=== PATIENT | male | born 1990 | race Caucasian/White ===

== ENCOUNTER 2024-12-04 14:29 | Inpatient (IN) | payer OTHER ==
[2024-12-04] MEDS ORDERED: BISMUTH SUBSALICYLATE 524 MG/30 ML PO PRN (15:18)
[2024-12-04] MEDS ORDERED: hydrOXYzine PAMOATE 25 MG CAPSULE (FP) PO PRN (15:18)
[2024-12-04] MEDS ORDERED: guaiFENesin 600 MG TABLET.ER (FP) PO PRN (15:18)
[2024-12-04] MEDS ORDERED: POLYETHYLENE GLYCOL (HEALTHYLAX) 3350 17 GM PACKET PO PRN (15:18)
[2024-12-04] MEDS ORDERED: LOPERAMIDE HCL 2 MG CAPSULE PO PRN (15:18)
[2024-12-04] MEDS ORDERED: BENZOCAINE/MENTHOL (CHLORASEPTIC ) LOZENGE MM PRN (15:18)
[2024-12-04] MEDS ORDERED: MAG HYDROX/AL HYDROX/SIMETH 30 ML UNIT-DOSE CUP PO PRN (15:18)
[2024-12-04] MEDS ORDERED: NALOXONE (NARCAN) HCL 4 MG/0.1 ML SPRAY NS PRN (15:18)
[2024-12-04] MEDS ORDERED: MAGNESIUM HYDROX 2400MG/30ML ORAL SUSPENSION 30 ML CUP PO PRN (15:18)
[2024-12-04] MEDS ORDERED: IBUPROFEN 400 MG TABLET (FP) PO PRN (15:18)
[2024-12-04] MEDS ORDERED: IBUPROFEN 600 MG TABLET (FP) PO PRN (15:18)
[2024-12-04] MEDS ORDERED: LORazepam 1 MG TABLET PO PRN (15:20)
[2024-12-04 15:26] VITALS: BMI 21.5
[2024-12-04] MEDS ORDERED: methaDONE HCL 10 MG TABLET PO PRN (17:19)
[2024-12-04] MEDS: methaDONE HCL 10 MG TABLET PO ONE ×2 (17:30→17:55)
[2024-12-04] MEDS: PRENATAL VITAMINS W/ FOLIC ACID TABLET (FP) PO SCH (17:55)
[2024-12-04] MEDS: LORazepam 2 MG TABLET PO SCH (17:55)
[2024-12-04] MEDS ORDERED: PRENATAL VITAMINS W/ FOLIC ACID TABLET (FP) PO ONE (17:57)
[2024-12-04] MEDS ORDERED: LORazepam 2 MG TABLET ONE (17:57)
[2024-12-04] MEDS ORDERED: methaDONE HCL 10 MG TABLET (FOR DETOX USE ONLY) ONE (17:57)
[2024-12-04] MEDS: cloNIDine HCL 0.1 MG TABLET PO SCH (18:32)
[2024-12-04] MEDS: BENZONATATE 200 MG CAPSULE PO PRN (18:49)
[2024-12-04] MEDS: MELATONIN 5 MG TABLETS PO SCH (23:07)
[2024-12-04] MEDS: THIAMINE 100 MG TABLET PO SCH (23:08)
[2024-12-05] MEDS: ACETAMINOPHEN 325 MG TABLET (FP) PO PRN (05:36)
[2024-12-05] MEDS: methaDONE 40 MG, methaDONE 10 MG PO ONE (10:49)
[2024-12-06] MEDS ORDERED: cloNIDine HCL 0.1 MG TABLET PO PRN
[2024-12-06] MEDS: LORazepam 1 MG TABLET PO SCH (05:58)
[2024-12-06] MEDS: methaDONE 40 MG, methaDONE 20 MG PO ONE (10:36)
[2024-12-06] MEDS: OSELTAMIVIR PHOSPHATE 75 MG CAPSULE PO SCH (10:54)
[2024-12-07] MEDS ORDERED: LORazepam 0.5 MG TABLET PO PRN
[2024-12-07] MEDS: LORazepam 0.5 MG TABLET PO SCH (06:00)
[2024-12-07] MEDS: methaDONE 40 MG, methaDONE 30 MG PO ONE (10:53)
[2024-12-07] MEDS: METHOCARBAMOL 500 MG TABLET PO PRN (10:53)
[2024-12-08] MEDS: LORazepam 0.5 MG TABLET PO ONE (06:00)
[2024-12-08] MEDS: methaDONE HCL 40 MG DISPERSABLE TABLET PO ONE (09:54)
[2024-12-08] MEDS: ONDANSETRON *ODT* 4 MG TABLET SL PRN (20:29)
[2024-12-09 00:47] LABS: POTASSIUM 4.7 mmol/L (3.5-5.1)
[2024-12-09 00:51] LABS: ALBUMIN 3.5 g/dl (3.4-5.0); BASO % 0.4 % (0-2.0); BLOOD UREA NITROGEN 12.4 mg/dL (7-18); CALCIUM 9.5 mg/dL (8.5-10.1); EOS % 1.6 % (0-4.5); HEMATOCRIT 44.2 % (35.4-49); HEMOGLOBIN 14.8 GM/dL (11.7-16.9); LYMPH % 26.6 % (8-40); MCH 27.5 pg (25.7-33.7); MCHC 33.5 g/dl (32.0-35.9); MEAN CELL VOLUME 82.1 fl (80-96); MEAN PLT VOLUME 9.5 fl (7.5-11.1); MONO % 7.1 % (3.8-10.2); NEUT % 64.3 % (42.8-82.8); PLATELET COUNT 266 10^3/uL (134-434); RBC 5.38 M/mm3 (4.00-5.60); RDW 14.6 % (11.9-15.9); WHITE BLOOD COUNT 6.6 K/mm3 (4.0-10.0)
[2024-12-09 00:53] LABS: CREATININE 0.7 mg/dL (0.55-1.3)
[2024-12-09 00:55] LABS: BILIRUBIN,TOTAL 0.4 mg/dL (0.2-1); TOT PROT 7.2 g/dl (6.4-8.2)
[2024-12-09] MEDS: methaDONE 80 MG, methaDONE 10 MG PO ONE (09:11)
[2024-12-09] MEDS: NALOXONE (NYS OPIOID OVERDOSE PROGRAM) 4 MG/0.1 ML SPRAY NS SCH (09:13)
[2024-12-10 09:09] VITALS: BP 98/77; PULSE 79; RESP 17; TEMP 98.9
[2024-12-10] MEDS: DICYCLOMINE HCL 10 MG CAPSULE PO PRN (09:09)
== END 2024-12-10 11:15 | disposition home or self-care (01) | DRG 773 ==
LOC: YASAS 14:29 → Y6N 17:56
PROVIDERS: ADMIT Allergy & Immunology; ATTEND Family Medicine Addiction Medicine
PROC: HZ2ZZZZ Detoxification Services for Substance Abuse Treatment (ICD-10-PCS; principal; 2024-12-04)
DX: F11.23 Opioid dependence with withdrawal (principal); F13.20 Sedative, hypnotic or anxiolytic dependence, uncomplicated; F10.20 Alcohol dependence, uncomplicated; F17.210 Nicotine dependence, cigarettes, uncomplicated; F41.9 Anxiety disorder, unspecified; J10.1 Influenza due to other identified influenza virus with other respiratory manifestations
CPT/HCPCS: 0241U-QW; 36415; 80053; 80305; 80307; 82962; 85025; 93005; 93010; Q0162

== ENCOUNTER 2025-02-16 11:33 | Inpatient (IN) | payer OTHER ==
[2025-02-16 11:55] VITALS: BMI 22.4
[2025-02-16] MEDS ORDERED: ONDANSETRON *ODT* 4 MG TABLET SL PRN (12:07)
[2025-02-16] MEDS ORDERED: IBUPROFEN 600 MG TABLET (FP) PO PRN (12:07)
[2025-02-16] MEDS ORDERED: BISMUTH SUBSALICYLATE 262 MG/15 ML BTL PO PRN (12:07)
[2025-02-16] MEDS ORDERED: MAG HYDROX/AL HYDROX/SIMETH 30 ML UNIT-DOSE CUP PO PRN (12:07)
[2025-02-16] MEDS ORDERED: LOPERAMIDE HCL 2 MG CAPSULE PO PRN (12:07)
[2025-02-16] MEDS ORDERED: BENZOCAINE/MENTHOL (CHLORASEPTIC ) LOZENGE MM PRN (12:07)
[2025-02-16] MEDS ORDERED: DICYCLOMINE HCL 10 MG CAPSULE PO PRN (12:07)
[2025-02-16] MEDS ORDERED: MAGNESIUM HYDROX 2400MG/30ML ORAL SUSPENSION 30 ML CUP PO PRN (12:07)
[2025-02-16] MEDS ORDERED: IBUPROFEN 400 MG TABLET (FP) PO PRN (12:07)
[2025-02-16] MEDS ORDERED: NALOXONE (NARCAN) HCL 4 MG/0.1 ML SPRAY NS PRN (12:07)
[2025-02-16] MEDS ORDERED: BENZONATATE 200 MG CAPSULE PO PRN (12:07)
[2025-02-16] MEDS ORDERED: guaiFENesin 600 MG TABLET.ER (FP) PO PRN (12:07)
[2025-02-16] MEDS ORDERED: POLYETHYLENE GLYCOL (HEALTHYLAX) 3350 17 GM PACKET PO PRN (12:07)
[2025-02-16] MEDS ORDERED: ACETAMINOPHEN 325 MG TABLET (FP) PO PRN (12:07)
[2025-02-16] MEDS ORDERED: diazePAM 5 MG TABLET ONE (13:46)
[2025-02-16] MEDS: diazePAM 5 MG TABLET PO SCH ×2 (13:48→17:31)
[2025-02-16] MEDS: MELATONIN 5 MG TABLETS PO SCH (22:24)
[2025-02-16] MEDS: THIAMINE 100 MG TABLET PO SCH (22:24)
[2025-02-17] MEDS: methaDONE 40 MG, methaDONE 30 MG PO SCH (05:50)
[2025-02-17] MEDS ORDERED: methaDONE HCL 10 MG TABLET PO SCH (06:00)
[2025-02-17 09:48] LABS: HEMATOCRIT 41.9 % (40.1-51.0); HEMOGLOBIN 13.3 g/dL (13.7-17.5); MCHC 31.7 g/dl (32.3-36.5); MEAN CELL VOLUME 84.6 fl (79.0-92.2); MEAN PLT VOLUME 10.5 fl (9.4-12.4); PLATELET COUNT # 386 x10^3/uL (163-337); RDW 15.5 % (12.0-15.6)
[2025-02-17 09:51] LABS: POTASSIUM 4.5 mmol/L (3.5-5.1)
[2025-02-17 10:06] LABS: CALCIUM 9.2 mg/dL (8.5-10.1)
[2025-02-17 10:08] LABS: ALBUMIN 3.8 g/dl (3.4-5.0); BLOOD UREA NITROGEN 14.3 mg/dL (7-18)
[2025-02-17 10:10] LABS: CREATININE 0.8 mg/dL (0.55-1.3)
[2025-02-17 10:11] LABS: BILIRUBIN,TOTAL 0.5 mg/dL (0.2-1); TOT PROT 7.3 g/dl (6.4-8.2)
[2025-02-17] MEDS: TOPIRAMATE 25 MG TABLET PO SCH (10:26)
[2025-02-17] MEDS: PRENATAL VITAMINS W/ FOLIC ACID TABLET (FP) PO SCH (10:26)
[2025-02-17] MEDS: METHOCARBAMOL 500 MG TABLET PO PRN (22:23)
[2025-02-18] MEDS: diazePAM 5 MG TABLET PO SCH (05:49)
[2025-02-18] MEDS: diazePAM 5 MG TABLET PO PRN (10:04)
[2025-02-19] MEDS: diazePAM 5 MG TABLET PO SCH (05:41)
[2025-02-19] MEDS: hydrOXYzine PAMOATE 25 MG CAPSULE (FP) PO PRN (22:35)
[2025-02-20] MEDS: diazePAM 5 MG TABLET PO ONE (05:17)
[2025-02-20 08:55] VITALS: BP 109/67; PULSE 101; RESP 17; TEMP 99.1
== END 2025-02-20 12:08 | disposition other institution (70) | DRG 773 ==
LOC: YASAS 11:33 → Y3N 12:29
PROVIDERS: ADMIT Allergy & Immunology; ATTEND Allergy & Immunology
PROC: HZ2ZZZZ Detoxification Services for Substance Abuse Treatment (ICD-10-PCS; principal; 2025-02-16)
DX: F13.232 Sedative, hypnotic or anxiolytic dependence with withdrawal with perceptual disturbance (principal); F11.20 Opioid dependence, uncomplicated; F14.20 Cocaine dependence, uncomplicated; F25.9 Schizoaffective disorder, unspecified; F41.9 Anxiety disorder, unspecified; Z86.19 Personal history of other infectious and parasitic diseases
CPT/HCPCS: 36415; 80053; 80305; 80307; 85027; 86780; 87811; 93005; 93010

== ENCOUNTER 2025-02-20 12:17 | Inpatient (IN) | payer OTHER ==
[2025-02-20] MEDS ORDERED: NALOXONE (NARCAN) HCL 4 MG/0.1 ML SPRAY NS PRN (13:34)
[2025-02-20] MEDS ORDERED: MAG HYDROX/AL HYDROX/SIMETH 30 ML UNIT-DOSE CUP PO PRN (13:34)
[2025-02-20] MEDS ORDERED: LOPERAMIDE HCL 2 MG CAPSULE PO PRN (13:34)
[2025-02-20] MEDS ORDERED: ACETAMINOPHEN 325 MG TABLET (FP) PO PRN (13:34)
[2025-02-20] MEDS ORDERED: IBUPROFEN 400 MG TABLET (FP) PO PRN (13:34)
[2025-02-20] MEDS ORDERED: NICOTINE 14 MG/24 HOURS TOPICAL PATCH TD PRN (13:34)
[2025-02-20] MEDS ORDERED: METHOCARBAMOL 500 MG TABLET PO PRN (13:34)
[2025-02-20] MEDS ORDERED: NALOXONE HCL 0.4 MG/ML VIAL IVPUSH PRN (13:34)
[2025-02-20] MEDS ORDERED: guaiFENesin 600 MG TABLET.ER (FP) PO PRN (13:34)
[2025-02-20] MEDS ORDERED: NICOTINE POLACRILEX 4 MG LOZENGE BC PRN (13:34)
[2025-02-20] MEDS ORDERED: MAGNESIUM HYDROX 2400MG/30ML ORAL SUSPENSION 30 ML CUP PO PRN (13:34)
[2025-02-20] MEDS ORDERED: BENZONATATE 200 MG CAPSULE PO PRN (13:34)
[2025-02-20] MEDS ORDERED: NICOTINE POLACRILEX 4 MG GUM BUC PRN (13:34)
[2025-02-20] MEDS ORDERED: POLYETHYLENE GLYCOL (HEALTHYLAX) 3350 17 GM PACKET PO PRN (13:34)
[2025-02-20] MEDS: MELATONIN 5 MG TABLETS PO SCH (21:30)
[2025-02-20] MEDS: THIAMINE 100 MG TABLET PO SCH (21:30)
[2025-02-20] MEDS ORDERED: PATIENT'S OWN MEDICATION (NON-FORMULARY) (Olanzapine [Zyprexa] 10 MG Tablet) PO SCH (22:00)
[2025-02-20] MEDS: BENZOCAINE/MENTHOL (CHLORASEPTIC ) LOZENGE MM PRN (22:09)
[2025-02-21] MEDS: methaDONE 40 MG, methaDONE 30 MG PO SCH (05:54)
[2025-02-21] MEDS ORDERED: methaDONE HCL 10 MG TABLET PO SCH (06:00)
[2025-02-21] MEDS ORDERED: FLUoxetine HCL 20 MG CAPSULE PO SCH (10:00)
[2025-02-21] MEDS: PRENATAL VITAMINS W/ FOLIC ACID TABLET (FP) PO SCH (10:17)
[2025-02-22] MEDS: hydrOXYzine PAMOATE 25 MG CAPSULE (FP) PO PRN (09:53)
[2025-02-22] MEDS: IBUPROFEN 600 MG TABLET (FP) PO PRN (14:05)
[2025-02-23] MEDS ORDERED: guaiFENesin 600 MG TABLET.ER (FP) PO PRN (09:49)
[2025-02-23] MEDS ORDERED: BENZONATATE 200 MG CAPSULE PO PRN (09:49)
[2025-02-23] MEDS: AMOX TR/POT CLAV 500MG/125MG TABLETS (FP) PO SCH (10:23)
[2025-02-23] MEDS: CHLORHEXIDINE GLUCONATE 0.12% 15ML CUP MM SCH (10:50)
[2025-02-23] MEDS: AMOX TR/POT CLAV 500MG/125MG TABLETS (FP) PO ONE (10:51)
[2025-02-23] MEDS: CLINDAMYCIN PHOSPHATE 1% TOPICAL GEL 30 GM TUBE TP SCH (13:43)
[2025-02-24] MEDS: AMOX TR/POT CLAV 500MG/125MG TABLETS (FP) PO SCH (10:09)
[2025-02-24] MEDS: OLANZapine 5 MG TABLET PO SCH (21:11)
[2025-02-25] MEDS: ESCITALOPRAM OXALATE 10 MG TABLET PO SCH (11:10)
[2025-02-26] MEDS: OLANZapine 2.5 MG TABLET PO SCH (21:11)
[2025-03-05] MEDS: ESCITALOPRAM OXALATE 10 MG TABLET PO SCH (10:10)
[2025-03-05] MEDS: OLANZapine 5 MG TABLET PO SCH (21:20)
[2025-03-08] MEDS: OXYMETAZOLINE 0.05% NASAL SOLUTION 15 ML BOTTLE NS PRN (09:12)
[2025-03-08] MEDS ORDERED: P-EPHED 60MG/TRIPROLIDI 2.5MG TABLET PO PRN (09:16)
[2025-03-20 07:02] VITALS: BP 104/75; PULSE 79; RESP 17; TEMP 97.7
== END 2025-03-20 09:06 | disposition home or self-care (01) | DRG 772 ==
LOC: YASAS 12:17 → Y3W 12:19
PROVIDERS: ADMIT Psychiatry & Neurology Pain Medicine; ATTEND Psychiatry & Neurology Pain Medicine
PROC: HZ42ZZZ Group Counseling for Substance Abuse Treatment, Cognitive-Behavioral (ICD-10-PCS; principal; 2025-02-20)
DX: F11.20 Opioid dependence, uncomplicated (principal); F13.20 Sedative, hypnotic or anxiolytic dependence, uncomplicated; F25.9 Schizoaffective disorder, unspecified; F41.9 Anxiety disorder, unspecified; J01.90 Acute sinusitis, unspecified
CPT/HCPCS: 0241U-QW; 36415; 86803; 87522